=== PATIENT | male | born 1980 | race Hispanic/Latino ===

== ENCOUNTER 2021-12-01 09:31 | Emergency (ER) | payer OTHER ==
[2021-12-01] MEDS ORDERED: Cephalexin 250 MG CAP ONE (10:06)
[2021-12-01] MEDS ORDERED: Boostrix 0.5 ML (Tdap) VIAL ONE (10:07)
== END 2021-12-01 10:20 | disposition home or self-care (01) ==
LOC: BURERS 09:31
DX: S64.491A Injury of digital nerve of left index finger, initial encounter (principal); I10 Essential (primary) hypertension; W26.0XXA Contact with knife, initial encounter; Y92.69 Other specified industrial and construction area as the place of occurrence of the external cause; Z23 Encounter for immunization
CPT/HCPCS: 90471; 90715